=== PATIENT | male | born 2000 | race Caucasian/White ===

== ENCOUNTER 2018-02-18 13:44 | Emergency (ER) | payer OTHER ==
[2018-02-18 13:50] VITALS: BP 167/90
--- NOTE | 2018-02-18 13:56 | EDPHY ---
H & P Time Seen by Provider: 02/18/18 13:45 HPI/ROS: CHIEF COMPLAINT: Head injury HISTORY OF PRESENT ILLNESS: Patient is a 18-year-old male who presents emergency department as a limited trauma activation. 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 This caused that to strike his head. He lost consciousness. He subsequently regained consciousness and fully recalls the event. He complains of moderate right-sided head pain. He had initial blurred vision in his right eye but that is improved. He denies any neck pain. No focal weakness or numbness. Patient denies any other injury. No chest pain or shortness of breath. REVIEW OF SYSTEMS: 10 systems were reveiwed and are negative with the exception of the elements mentioned in the history of present illness. Past Medical/Surgical History: Includes low back pain Past surgical history: Noncontributory Social history: The patient smokes THC Smoking Status: Current every day smoker Physical Exam: Vitals noted GENERAL: Well-appearing, in no acute distress, alert. HEAD: No evidence of trauma. Patient has right lateral head tenderness to palpation. EYES: PERRLA, EOMI, normal to inspection. ENT: Airway intact, no malocclusion, no hemotympanum, normal external examination. NECK: The trachea is midline. There is no crepitus. The C-spine is nontender. NEXUS criteria is negative (no midline tenderness, no distracting injury, no altered mental status, no recent alcohol use, no focal neurologic deficit). RESPIRATORY: [Clear to auscultation bilaterally, no rales, rhonchi or wheezing. Chest wall: Normal to appearance. No crepitance or deformity. CVS: Regular rate and rhythm, no rubs, murmurs, or gallops. ABDOMEN: Soft, nontender, nondistended. BACK: Normal to inspection, no spinal tenderness, no spinal step off, no notable bruising or abrasions. SKIN: Normal color, warm, dry. No pallor or diaphoresis. EXTREMITIES: Atraumatic, neurovascularly intact distally in all extremities, hips with full range of motion, moves all extremities freely. NEURO/PSYCH: Alert and oriented x 3, GCS 15, normal mood and affect, normal motor sensory exam. Constitutional: Initial Vital Signs Temperature (C) 37.1 C 02/18/18 13:47 Heart Rate 68 02/18/18 13:47 Respiratory Rate 16 02/18/18 13:47 Blood Pressure 167/90 H 02/18/18 13:47 O2 Sat (%) 95 02/18/18 13:47 O2 Delivery Mode Room Air Allergies/Adverse Reactions: No Known Allergies Allergy (Unverified 02/18/18 14:34) Home Medications: Medication Instructions Recorded NK [No Known Home Meds] 02/18/18 Medical Decision Making - Diagnostics Imaging Results: Imaging Impressions Head CT 02/18/18 13:53 Impression: 1. No acute intracranial process. 2. Paranasal sinus disease. Findings and recommendations discussed with PIETRO ISAAC at 1453 hour, . ED Course/Re-evaluation: I met EMS on arrival. I took report from the vibrating screen operator. In the emergency department I discussed possible etiologies with the patient. I answered all his questions. Due the patient's head injury and loss of consciousness head CT was ordered. Patient consented. Head CT: Please refer the dictated report. No acute disease noted. I discussed the results with the patient. I answered all his questions. Patient was given warnings prior to leaving. He understands he needs follow-up with workman's Comp. Differential Diagnosis: My differential includes but is not limited to subarachnoid hemorrhage, subdural hematoma, epidural hematoma, skull fracture, contusion, spinal injury - Data Points Medications Given: Discontinued Medications Ibuprofen (Motrin) 800 mg PO EDNOW ONE Stop: 02/18/18 14:36 Last Admin: 02/18/18 14:41 Dose: 800 mg Departure - Departure Disposition: Home, Routine, Self-Care Clinical Impression: Head injury Qualifiers: Encounter type: initial encounter Qualified Code(s): S09.90XA - Unspecified injury of head, initial encounter Instructions: Head Injury (ED) Additional Instructions: Your head CT was negative. Return with increasing headache, vomiting or any other concerns. Referrals: Work Comp Referral [facility] [Outside] - 3-4 days, if not improved
[2018-02-18] MEDS ORDERED: IBUPROFEN 800 MG TAB PO ONE (14:35)
== END 2018-02-18 15:14 | disposition home or self-care (01) ==
DX: S06.9X1A Unspecified intracranial injury with loss of consciousness of 30 minutes or less, initial encounter (principal); W22.8XXA Striking against or struck by other objects, initial encounter; Y99.0 Civilian activity done for income or pay; Y92.009 Unspecified place in unspecified non-institutional (private) residence as the place of occurrence of the external cause